=== PATIENT | male | born 1985 | race Caucasian/White ===

== ENCOUNTER 2017-01-29 21:54 | Emergency (ER) | payer SELFPAY ==
[2017-01-29 21:56] VITALS: BP 159/83; PULSE 88; RESP 16; TEMP 98.3; O2SAT 99
--- NOTE | 2017-01-29 23:48 | PD ---
HPI Chief Complaint: Skin Problem Time Seen by Provider: 23:48 Travel History International Travel<30 days: No Contact w/Intl Traveler<30days: No Traveled to known affect area: No History of Present Illness HPI 31-year-old male came to the emergency room with history of an abscess of his right forearm. Patient says he has had it for past 2 weeks but it really became a big and fluctuant in past 2 days. Patient is an IV drug abuser. He has had abscesses and MRSA in the past. No history of fever or chills. His vital signs were stable in the triage. [facility] Past Medical History Narrative Medical List of his past medical, surgical, social and family history reviewed from the nursing note. Social History Tobacco Use: Yes Allergies-Medications (Allergen,Severity, Reaction): Coded Allergies: No Known Allergies (Unverified , 01/29/17) Comments No known drug allergies. Reported Meds & Prescriptions Reported Meds & Active Scripts Active Naprosyn (Naproxen) 500 Mg Tab 500 Mg PO BID Bactrim DS (Sulfamethoxazole-Trimethoprim) 800-160 Mg Tab 1 Tab PO BID Narrative Medication List of his home medications reviewed from the nursing note. Review of Systems Except as stated in HPI: all other systems reviewed are Neg Physical Exam Narrative GENERAL: Awake, alert, no obvious distress SKIN: Focused skin assessment warm/dry. 3 x 3 cm fluctuant abscess on the dorsum of the right mid forearm HEAD: Atraumatic. Normocephalic. EYES: Pupils equal and round. No scleral icterus. No injection or drainage. ENT: No nasal bleeding or discharge. Mucous membranes pink and moist. NECK: Trachea midline. No JVD. CARDIOVASCULAR: Regular rate and rhythm. No murmur appreciated. RESPIRATORY: No accessory muscle use. Clear to auscultation. Breath sounds equal bilaterally. GASTROINTESTINAL: Abdomen soft, non-tender, nondistended. Hepatic and splenic margins not palpable. MUSCULOSKELETAL: No obvious deformities. No clubbing. No cyanosis. No edema. NEUROLOGICAL: Awake and alert. No obvious cranial nerve deficits. Motor grossly within normal limits. Normal speech. PSYCHIATRIC: Appropriate mood and affect; insight and judgment normal. Data Data Last Documented VS Vital Signs Date Time Temp Pulse Resp B/P Pulse Ox O2 Delivery O2 Flow Rate FiO2 01/29/17 21:56 98.3 88 16 159/83 99 Room Air Orders Basic Metabolic Panel (Bmp) (01/29/17 23:50) Complete Blood Count With Diff (01/29/17 23:50) Wound Culture And Gram Stain (01/29/17 23:50) Tetanus/Diphtheria Tox Adult (Tetanus/Di (01/30/17 00:00) Sulfamet-Trimeth Ds 800-160 Mg (Bactrim (01/30/17 00:00) Naproxen (Naprosyn) (01/30/17 00:00) Lidocaine 1% Inj (50 Ml) (Xylocaine 1% I (01/30/17 00:20) Labs Laboratory Tests Test 01/30/17 00:10 White Blood Count 12.2 TH/MM3 Red Blood Count 4.44 MIL/MM3 Hemoglobin 13.8 GM/DL Hematocrit 39.2 % Mean Corpuscular Volume 88.3 FL Mean Corpuscular Hemoglobin 31.1 PG Mean Corpuscular Hemoglobin 35.2 % Concent Red Cell Distribution Width 12.5 % Platelet Count 241 TH/MM3 Mean Platelet Volume 8.8 FL Neutrophils (%) (Auto) 67.1 % Lymphocytes (%) (Auto) 20.0 % Monocytes (%) (Auto) 9.7 % Eosinophils (%) (Auto) 2.7 % Basophils (%) (Auto) 0.5 % Neutrophils # (Auto) 8.2 TH/MM3 Lymphocytes # (Auto) 2.4 TH/MM3 Monocytes # (Auto) 1.2 TH/MM3 Eosinophils # (Auto) 0.3 TH/MM3 Basophils # (Auto) 0.1 TH/MM3 CBC Comment DIFF FINAL Differential Comment Sodium Level 138 MEQ/L Potassium Level 3.4 MEQ/L Chloride Level 101 MEQ/L Carbon Dioxide Level 31.0 MEQ/L Anion Gap 6 MEQ/L Blood Urea Nitrogen 11 MG/DL Creatinine 1.09 MG/DL Estimat Glomerular Filtration 80 ML/MIN Rate Random Glucose 93 MG/DL Calcium Level 8.8 MG/DL [facility] Medical Decision Making Medical Screen Exam Complete: Yes Emergency Medical Condition: Yes Medical Record Reviewed: Yes Differential Diagnosis Abscess, IV drug abuse Narrative Course 12:42 AM awaiting for the blood test results to come back. Patient does not appear toxic. I've ordered by mouth Bactrim and Naprosyn for him. I will do an I&D. Please refer to my procedure note. 1:29 AM blood test results are back. Patient has some leukocytosis. I and D is done and packed. Patient will be discharged home on prescription. Procedures Procedure Narrative Incision and drainage: The area was cleaned with Betadine gauze 3. 3 ML of 1% lidocaine was infiltrated subcutaneously. Linear incision vertically was made of 2 cm. Instantly purulent material started to come out. At least 10 cc of pus came out. Loculations were broken with forceps. Half inch wide iodoform gauze was inserted as packing. Wound was dressed loosely with dry gauze. Patient tolerated the procedure well overall. EKG Prior to Arrival: No Diagnosis Primary Impression: Abscess Additional Impression: IV drug abuse Referrals: Primary Care Physician 2 days Additional Instructions: The packing needs to come out in 48 hours. Please return to the ER for that. Take the antibiotic as per the prescription direction. Return sooner if the condition worsens or any other new concerns. Med/Other Pt SpecificInfo: Prescription(s) given Scripts Naproxen (Naprosyn)500 Mg [id number] Mg PO BID #60 TAB Ref 0 Prov:Deana Leigh MD 01/30/17 Sulfamethoxazole-Trimethoprim (Bactrim DS)800-160 Mg Tab1 Tab PO BID #20 TAB Ref 0 Prov:Deana Leigh MD 01/30/17 Disposition: 01 DISCHARGE HOME Condition: Stable Deana Leigh MD Jan 29, 2017 23:48
[2017-01-30] MEDS ORDERED: TETANUS/DIPHTHERIA TOXOID ADULT 0.5 ML VIAL IM ONE
[2017-01-30] MEDS ORDERED: NAPROXEN 375 MG TAB PO ONE
[2017-01-30] MEDS ORDERED: SULFAMETHOXAZOLE-TRIMETHOPRIM DS 800-160 MG TAB PO ONE
[2017-01-30] MEDS ORDERED: LIDOCAINE HCL 1% 50 ML VIAL ONE (00:20)
[2017-01-30 00:30] LABS: AUTOMATED NEUTROPHIL # 8.2 TH/MM3 (1.8-7.7); BASOPHIL # 0.1 TH/MM3 (0-0.2); BASOPHIL % 0.5 % (0.0-2.0); EOSINOPHIL # 0.3 TH/MM3 (0-0.4); EOSINOPHIL % 2.7 % (0.0-4.0); HEMATOCRIT 39.2 % (39.0-51.0); HEMO FLAGS DIFF FINAL; LYMPHOCYTE # 2.4 TH/MM3 (1.0-4.8); MEAN CELL VOLUME 88.3 FL (80.0-100.0); MEAN CORPUSCULAR HEMOGLOBIN 31.1 PG (27.0-34.0); MEAN CORPUSCULAR HGB CONC 35.2 % (32.0-36.0); MONO % 9.7 % (0.0-8.0); NEUT % 67.1 % (16.0-70.0); PLATELET COUNT 241 TH/MM3 (150-450); RED BLOOD COUNT 4.44 MIL/MM3 (4.50-5.90); RED CELL DISTRIBUTION WIDTH 12.5 % (11.6-17.2); WHITE BLOOD COUNT 12.2 TH/MM3 (4.0-11.0)
[2017-01-30 00:49] LABS: POTASSIUM 3.4 MEQ/L (3.5-5.1)
[2017-01-30] MEDS ORDERED: BACT800T5 PO (01:28)
[2017-01-30] MEDS ORDERED: NAPR500 PO (01:28)
== END 2017-01-30 01:40 | disposition home or self-care (01) ==
LOC: NEPC 21:54
DX: L02.413 Cutaneous abscess of right upper limb (principal); D72.829 Elevated white blood cell count, unspecified; F19.10 Other psychoactive substance abuse, uncomplicated; Z79.899 Other long term (current) drug therapy; Z23 Encounter for immunization
CPT/HCPCS: 10061; 80048; 85025; 86403; 87070; 87186; 90471; 90714

== ENCOUNTER 2017-03-04 19:55 | Emergency (ER) | payer SELFPAY ==
[~2017-03-04 19:55] MED LIST: BACT800T5 PO; NAPR500 PO
[2017-03-04 19:57] VITALS: BP 167/109; PULSE 91; RESP 18; TEMP 99; O2SAT 97
== END 2017-03-04 20:49 | disposition left against medical advice (07) ==
LOC: NED 19:55
DX: F19.10 Other psychoactive substance abuse, uncomplicated (principal); Z53.21 Procedure and treatment not carried out due to patient leaving prior to being seen by health care provider
CPT/HCPCS: 99281

== ENCOUNTER 2017-03-04 20:57 | Emergency (ER) | payer SELFPAY ==
[~2017-03-04] VITALS: Ht 182.9 cm; Wt 75.0 kg
[2017-03-04 20:58] VITALS: BP 148/89; PULSE 71; RESP 16; TEMP 98.1; O2SAT 96
--- NOTE | 2017-03-04 21:30 | PD ---
HPI Chief Complaint: Medical Clearance Time Seen by Provider: 21:26 Travel History International Travel<30 days: No Contact w/Intl Traveler<30days: No Traveled to known affect area: No History of Present Illness HPI 31-year-old white male with a history of IV substance abuse presents today requesting detox. He states that he uses IV cocaine and heroin. He last used approximately 4 hours ago. Patient denies any medical complaints. PFSH Past Medical History Narrative Medical Hepatitis C, IV drug abuse Diminished Hearing: No Hepatitis: Yes (C) Tetanus Vaccination: < 5 Years Past Surgical History Surgical History: No Previous Surgery Social History Alcohol Use: Yes (RARELY) Tobacco Use: Yes Substance Use: Yes (HEROIN, COCAINE) Allergies-Medications (Allergen,Severity, Reaction): Coded Allergies: *MDRO Multi-Drug Resistant Organism (Verified Adverse Reaction, Unknown, ) MRSA (arm) 01/30/17 Reported Meds & Prescriptions Reported Meds & Active Scripts Active Review of Systems Except as stated in HPI: all other systems reviewed are Neg Physical Exam Narrative GENERAL: This is a well-nourished, well-developed patient, in no apparent distress. SKIN: No rashes, ecchymoses or lesions. Warm and dry. No signs of wound infection. HEAD: Atraumatic. Normocephalic. EYES: PERRL, EOMI, no discharge or injection. No scleral icterus. EARS: Clear NOSE: Nasal turbinates appear normal. THROAT: Mucosa pink and moist. Airway patent. NECK: Trachea midline. supple, moves head freely. LUNGS: Clear to auscultation. CV: Regular in rhythm. ABDOMEN: Soft nontender. EXT: No clubbing cyanosis or edema. Data Data Last Documented VS Vital Signs Date Time Temp Pulse Resp B/P Pulse Ox O2 Delivery O2 Flow Rate FiO2 03/04/17 20:58 98.1 71 16 148/89 96 Room Air MDM Medical Decision Making Medical Screen Exam Complete: Yes Emergency Medical Condition: Yes Medical Record Reviewed: Yes Differential Diagnosis Differential diagnoses: IV drug abuse, malingering, depression, alcohol abuse Narrative Course I have contacted*[facility]. There is no detox beds available. The patient's been advised to show up at 7 AM Diagnosis Primary Impression: IV drug abuse Patient Instructions: General Instructions Additional Instructions: Rest. Increase fluids. Avoid alcohol. Avoid illegal substances. Follow-up with [facility] for detox. Do not operate a car or any heavy machinery under the influence of alcohol or drugs. Follow-up with a medical doctor this week. Return to the ER for emergencies Med/Other Pt SpecificInfo: No Meds Exist/No RX given Disposition: 01 DISCHARGE HOME Condition: Stable Rigo Hampton Mar 04, 2017 21:30
== END 2017-03-04 21:36 | disposition home or self-care (01) ==
LOC: NEPD 20:57
DX: F14.10 Cocaine abuse, uncomplicated (principal); F11.10 Opioid abuse, uncomplicated; B19.20 Unspecified viral hepatitis C without hepatic coma; Z72.0 Tobacco use
CPT/HCPCS: 99281